=== PATIENT | female | born 1985 | race Caucasian/White ===

== ENCOUNTER 2018-03-19 15:18 | Outpatient (CLI) ==
[2013-11-03 14:49] VITALS: BMI 33.3
== END 2018-03-19 15:19 | disposition home or self-care (01) ==
LOC: RHC-LAB 15:18
PROVIDERS: ATTEND Emergency Medicine
DX: E11.9 Type 2 diabetes mellitus without complications (principal); F79 Unspecified intellectual disabilities; E66.9 Obesity, unspecified
CPT/HCPCS: 36415; 80053; 80061; 83036; 84443; 85025

== ENCOUNTER 2018-03-19 20:08 | Emergency (ER) | payer OTHER ==
[2018-03-19 20:15] VITALS: BP 145/91; TEMP 99.3; BMI 41.4
--- NOTE | 2018-03-19 21:07 | ED.PDOC ---
General ED Provider: Dr. JENNIFER EDMONDS Chief Complaint: Seizure Mode of Arrival: Ambulance Information Source: Patient Primary Care Provider: JENNIFER EDMONDS-[facility] Sepsis Protocol: For patient's 13 years and over: Temp is 96.8 and below OR 101 and greater Pulse >90 BPM Resp >20/minute Acutely Altered Mental Status Are patient's symptoms suggestive of a new infection, such as: -Pneumonia -Skin, Soft Tissue -Endocarditis -UTI -Bone, Joint Infection -Implantable Device -Acute Abdominal Infection -Wound Infection -Meningitis -Blood Stream Catheter Infection -Unknown Past Medical History - Past Medical History Last Menstrual Period: begining of february - Social History Smoking Status: Never smoker Hx Substance Use: No Alcohol Screening: None - Immunizations Tetanus Shot up to Date: (unknown) Course - Course Orders, Labs, Meds: Orders Category Date Time Status KEPPRA/LEVETIRACETAM Stat LAB 03/19/18 Ordered URINALYSIS C & S IF INDICATED Stat LAB 03/19/18 20:53 Uncollected URINE Stat LAB 03/19/18 20:[address] HEAD W/O CONTRAST Stat RADS 03/19/18 20:53 Ordered Vital Signs: Temp Pulse Resp BP Pulse Ox 03/19/18 20:10 99.3 F 100 H 24 145/91 H 97 Departure - Departure Allergies/Adverse Reactions: Allergies No Known Allergies Allergy (Unverified 03/19/18 20:36) Home Medications: Ambulatory Orders Levetiracetam 1 tab PO BID 11/03/13 Aripiprazole 15 mg PO DAILY 03/19/18 Escitalopram Oxalate 20 mg PO DAILY 03/19/18 Guaifenesin/Dextromethorphan [Guaifenesin Dm 400-20 mg Tab] 1 tab PO DIRECTED PRN 03/19/18 Hydroxyzine Pamoate 25 mg PO Q8HR PRN 03/19/18 Insulin Glargine,Hum.rec.anlog [Lantus Solostar] 15 unit SQ BID 03/19/18 Levothyroxine Sodium 37.5 mcg PO DAILY 03/19/18 Metformin HCl [Fortamet] 1,000 mg PO DAILY 03/19/18 Sitagliptin Phosphate [Januvia] 50 mg PO DAILY 03/19/18 Zolpidem Tartrate 5 mg PO BEDTIME PRN 03/19/18
--- NOTE | 2018-03-19 22:02 | CT ---
EXAM: CT scan brain without contrast HISTORY: Seizure COMPARISON: None. FINDINGS: Contiguous axial images obtained from the skull base to the convexities without contrast u tilizing 5-mm collimation. Sagittal and coronal reconstructions were imaged and reviewed. The ventr icles and CSF spaces are within normal limits. There are no acute intracranial findings. The visual ized paranasal sinuses and mastoid air cells are clear. IMPRESSION: No acute intracranial findings
--- NOTE | 2018-03-19 22:13 | ED.PDOC ---
General ED Provider: Dr. JENNIFER EDMONDS Chief Complaint: Seizure Stated Complaint: Patient had episode of seizure, blood sugars are been elevated to 400,. she take Lnatus 10 units daily. lots of stress lately. now awake and alert Time Seen by Physician: 22:10 Mode of Arrival: Ambulance Information Source: Patient Primary Care Provider: JENNIFER EDMONDS-[facility] Nursing and Triage Documentation Reviewed and Agree: Yes Does patient meet sepsis criteria?: No If yes, has appropriate treatment been initiated?: No System Inflammatory Response Syndrome: Not Applicable Sepsis Protocol: For patient's 13 years and over: Temp is 96.8 and below OR 101 and greater Pulse >90 BPM Resp >20/minute Acutely Altered Mental Status Are patient's symptoms suggestive of a new infection, such as: -Pneumonia -Skin, Soft Tissue -Endocarditis -UTI -Bone, Joint Infection -Implantable Device -Acute Abdominal Infection -Wound Infection -Meningitis -Blood Stream Catheter Infection -Unknown Neurological Complaint Exam - Seizure Complaint/Exam Symptoms Are: Resolved Timing: Intermittent Episodes Lasting: Minutes Failed to Regain Consciousness: No Severity: Self-limited Location: All extremities Character: Generalized Aggravating: Reports: Sleep deprivation Alleviating: Reports: Spontaneous resolution Associated Signs and Symptoms: Reports: Anxiety, Emotional distress. Denies: Impaired speech, Bladder incontinence, Bowel incontinence, Trauma, Illness, Vomiting, Lethargy, Apnea SAH Risk Factors: Reports: None Meningitis Risk Factors: Reports: None SDH Risk Factors: Reports: None Related Surgical History: Reports: None Active Seizure: Tonic-clonic Carotid Bruit Present: No Cephalohematoma Present: No Tongue Bitten: No Neck Pain Present: No Nystagmus Present: No Gag Reflex Present: Yes Speech: Present: Normal Findings Aphasia: Present: None Meningeal Signs Positive: No Focal Weakness: Present: None Focal Sensory Loss: Reports: None Gait: Normal [id number]: Normal Findings Differential Diagnoses: Seizure Disorder Review of Systems - Review Of Systems Constitutional: Reports: No symptoms Eyes: Reports: No symptoms Ears, Nose, Mouth, Throat: Reports: No symptoms Respiratory: Reports: No symptoms Cardiac: Reports: No symptoms GI: Reports: No symptoms : Reports: No symptoms Musculoskeletal: Reports: No symptoms Skin: Reports: No symptoms Neurological: Reports: No symptoms Endocrine: Reports: No symptoms Hematologic/Lymphatic: Reports: No symptoms All Other Systems: Reviewed and Negative Past Medical History - Past Medical History Previously Healthy: Yes Endocrine: Reports: DM 2 Cardiovascular: Reports: Hypertension Respiratory: Reports: None Hematological: Reports: None Gastrointestinal: Reports: None Genitourinary: Reports: None Neuro/Psych: Reports: Seizure, Anxiety, Depression Musculoskeletal: Reports: None Cancer: Reports: None Last Menstrual Period: begining of february - Surgical History General Surgical History: Reports: None - Family History Family History: Reports: None - Social History Smoking Status: Never smoker Hx Substance Use: No Alcohol Screening: None - Immunizations Tetanus Shot up to Date: (unknown) Physical Exam - Physical Exam Appearance: Well-appearing, Obese Eyes: EOMI ENT: Ears normal, Nose normal, Oropharynx normal Respiratory: Airway patent, Breath sounds clear, Breath sounds equal, Respirations nonlabored Cardiovascular: RRR, Pulses normal, No rub, No murmur GI/: Soft, Nontender, No masses, Bowel sounds normal, No Organomegaly Musculoskeletal: Normal strength, ROM intact, No edema, No calf tenderness Skin: Warm, Dry, Normal color Neurological: Sensation intact, Motor intact, Reflexes intact, Cranial nerves intact, Alert, Oriented Psychiatric: Affect appropriate, Mood appropriate Critical Care Note - Critical Care Note Total Time (mins): 30 Course - Course Orders, Labs, Meds: Lab Review 03/19/18 03/19/18 20:31 20:31 Urine Color Yellow Urine Clarity Clear Urine pH 5.5 Ur Specific [place] 1.020 Urine Protein Negative Urine Glucose (UA) 2+ Urine Ketones Negative Urine Blood Negative Urine Nitrite Negative Urine Bilirubin Negative Urine Urobilinogen 0.2 Ur Leukocyte Esterase Negative Urine Test Negative Orders Category Date Time Status KEPPRA/LEVETIRACETAM Stat LAB 03/19/18 21:09 Received URINALYSIS C & S IF INDICATED Stat LAB 03/19/18 20:31 Completed URINE Stat LAB 03/19/18 20:[address] HEAD W/O CONTRAST Stat RADS 03/19/18 20:53 Completed Vital Signs: Temp Pulse Resp BP Pulse Ox 03/19/18 20:10 99.3 F 100 H 24 145/91 H 97 Departure - Departure Time of Disposition: 22:12 Disposition: HOME SELF-CARE Discharge Problem: Seizure Instructions: Epilepsy (ED) Condition: Stable Pt referred to PMD for follow-up: Yes IPMP verified?: No Additional Instructions: Increase Lantus to 18 bid units sub q daily. keep checking sugars f/u in [facility] in 2 days Prescriptions: Insulin Glargine,Hum.rec.anlog [Lantus Solostar] 18 unit SQ BID #1 insuln.pen Allergies/Adverse Reactions: Allergies No Known Allergies Allergy (Unverified 03/19/18 20:36) Home Medications: Ambulatory Orders Levetiracetam 1 tab PO BID 11/03/13 Aripiprazole 15 mg PO DAILY 03/19/18 Escitalopram Oxalate 20 mg PO DAILY 03/19/18 Guaifenesin/Dextromethorphan [Guaifenesin Dm 400-20 mg Tab] 1 tab PO DIRECTED PRN 03/19/18 Hydroxyzine Pamoate 25 mg PO Q8HR PRN 03/19/18 Insulin Glargine,Hum.rec.anlog [Lantus Solostar] 15 unit SQ BID 03/19/18 Insulin Glargine,Hum.rec.anlog [Lantus Solostar] 18 unit SQ BID #1 insuln.pen Levothyroxine Sodium 37.5 mcg PO DAILY 03/19/18 Metformin HCl [Fortamet] 1,000 mg PO DAILY 03/19/18 Sitagliptin Phosphate [Januvia] 50 mg PO DAILY 03/19/18 Zolpidem Tartrate 5 mg PO BEDTIME PRN 03/19/18 Disposition Discussed With: Patient, Family
[2018-03-19] MEDS ORDERED: HUMULIN R SUBCUT STA (22:20)
== END 2018-03-19 23:05 | disposition home or self-care (01) ==
LOC: ED 20:08
DX: R56.9 Unspecified convulsions (principal); F41.9 Anxiety disorder, unspecified; Z72.820 Sleep deprivation; E11.9 Type 2 diabetes mellitus without complications; Z79.4 Long term (current) use of insulin
CPT/HCPCS: 36415; 80053; 80061; 81001; 81025; 82542; 82962; 83036; 84443; 85025; 96372; 99283; 99285